=== PATIENT | female | born 1975 | race Caucasian/White ===

== ENCOUNTER → 2017-01-03 | Outpatient (CLI) | payer OTHER ==
[~2017-01-03] MED LIST: CALAMINE180 ML; HYDROCODONE-APA1 TA1 PO; LEVOTHYROXIN0.075 MG PO; LEVOTHYROXINE0.05 MG PO; LISINOPRIL10 MG PO; NOHOMEMEDICATIONS; OMEPRAZOLE 20 M20 M1 PO; PREDNISONE 20 M20 MG PO; REXULTI1 MG PO; TRIAMCINOLONE A15 G1 TP; VENLAFAXIN75 MG/1 T2 PO; XANAX 0.5 MG0.5 MG PO; [UNRECOGNIZED DRUG - OTHER] TP
== END ==
LOC: MRI 02:14
DX: M47.812 Spondylosis without myelopathy or radiculopathy, cervical region (principal); M48.02 Spinal stenosis, cervical region; M54.2 Cervicalgia; M79.602 Pain in left arm; M79.601 Pain in right arm